=== PATIENT | male | born 1950 | race African-American/Black ===

== ENCOUNTER 2018-09-07 07:30 | Day surgery (SDC) | payer MEDICARE, BC, OTHER ==
[~2018-09-07 07:30] MED LIST: BUPIVACAINE HCL 0.75% INJ/PF (7.5 MG/1 ML) 10 ML SDV OD PRN; CHONDR SU A NA/HYALUR INTRAOC KIT (SURGICARE) ONE; EPINEPHRINE INJ/PF 1 MG/1 ML AMPULE ONE; KETOROLAC TROMETHAMINE 0.45% 4 DROP/0.4 ML DROPERETTE OD PRN; LIDOCAINE 1% INJ-PF (10 MG/ML) 30 ML SDV ONE; LIDOCAINE 4% INJ/PF (40 MG/ML) 5 ML AMPUL OD PRN; MIDAZOLAM 2 MG/2 ML INJ ONE
[2018-09-07] MEDS: TETRACAINE HCL 0.5% OPH SOLN 0.6 ML DROPERETTE OD PRN ×2 (08:08→08:37)
[2018-09-07] MEDS: CYCLOPENTOLATE 0.2%/PHENYLEPHRINE 1% OPH SOLN 2 ML OD PRN ×3 (08:09→08:33)
[2018-09-07] MEDS: BESIFLOXACIN HCL 0.6% OPH SUSP 5 ML BOTTLE OD PRN ×4 (08:09→09:18)
[2018-09-07] MEDS: TROPICAMIDE 1% OPH SOLN 3 ML OD PRN ×3 (08:09→08:33)
[2018-09-07] MEDS: DORZOLAMIDE HCL 2%/TIMOLOL MALEAT 0.5% OPH SOLN 10 ML OD PRN ×2 (09:18)
--- NOTE | 2018-09-07 10:11 | [facility] DISCHARGE SUMMARY E ---
[facility] Discharge Summary NAME: Minnie DE LA TORRE AGE: 68Y ADMITTED: 09/07/2018 DISCHARGED: HOSPITAL COURSE: The patient is a 68-year-old gentleman who underwent uneventful cataract extraction with intraocular lens implant right eye on 09/07/2018. He will be discharged to home. He was instructed to resume preoperative medications. Take Tylenol as needed for discomfort. Keep his eye shielded. Use Durezol, Prolensa and Besivance at 3:00 p.m. and 8:00 p.m. To follow up in my office in 1 day. DICTATING PHYSICIAN: LORNA MACK M.D. [id number] PHY#: [id number] ID: [id number] JOB#: [id number] ACCT: [id number] cc:LORNA MACK M.D. >
--- NOTE | 2018-09-07 10:11 | [facility] OPERATIVE REPORT E ---
[facility] Operative Report NAME: Minnie DE LA TORRE AGE: 68Y DATE OF SURGERY: 09/07/2018 ROOM: [facility] Operative Report PREOPERATIVE DIAGNOSIS: CATARACT, RIGHT EYE. POSTOPERATIVE DIAGNOSIS: CATARACT, RIGHT EYE. PROCEDURE PERFORMED: PHACOEMULSIFICATION WITH POSTERIOR CHAMBER INTRAOCULAR LENS, RIGHT EYE. SURGEON: LORNA MACK MD ANESTHESIA: TOPICAL WITH MAC. INDICATIONS FOR SURGERY: Status post vitrectomy and rapid progression of cataract. PROCEDURE: The patient was brought to the Operating Room and placed on the operative table. Following tetracaine drops, topical anesthesia was administered. This consisted of instrument wipe pledgets soaked in a solution of 4% Xylocaine mixed with 0.75% Marcaine in a 1:2 ratio. A 2 x 1 cm pledget was placed in the superior fornix. A 1 x 1 cm pledget was placed in the inferior fornix. The eye was patched shut for 5 minutes. The patch was removed. The eye was sterilely prepped and draped in the usual manner. Lid speculum was placed in the eye. The pledgets were removed. 4-0 black silk sutures were placed around the superior and the inferior rectus muscles to be used as traction. A conjunctival peritomy was made at the 10 o'clock position. Hemostasis was obtained with bipolar cautery. A posterior limbal groove was created using a crescent knife and dissected anteriorly towards the cornea. A sharp point blade was used to create a paracentesis site at the 2 o'clock position. A 2.4 mm keratome was used to enter the anterior chamber through the groove. Viscoelastic was injected into the anterior chamber. An anterior capsulotomy was performed using Utrata forceps in a capsulorrhexis fashion. Hydrodissection and hydrodelineation were performed. Phacoemulsification was performed in garmqp-gna-[id number] technique. A total of 9.69 seconds phaco time was used. Following this, the I/A unit was used to remove residual cortex. Viscoelastic was injected into the capsular bag. Intraocular lens model SN60WF, 18.5 diopters, serial number [id number] was placed in the capsular bag. The I/A unit was used to remove residual viscoelastic. The wound was seen to be watertight under high and low pressure, and no sutures were placed. The intraocular lens was well centered. The pressure was adjusted in the eye to normal pressure. The 4-0 black silk sutures and lid speculum were removed. The eye was shielded after Besivance drops were placed. A drop of Cosopt was placed in the eye at the end of surgery. The patient tolerated the procedure well and was sent to the Recovery Room in good condition. DICTATING PHYSICIAN: LORNA MACK M.D. DICTATING PHYSICIAN: LORNA MACK M.D. [id number] Y#: [id number] ID: [id number] JOB#: [id number] ACCT: [id number] cc:LORNA MACK M.D. >
== END 2018-09-07 10:02 | disposition home or self-care (01) ==
LOC: SC 07:30
PROVIDERS: ATTEND Ophthalmology
DX: H25.813 Combined forms of age-related cataract, bilateral (principal); H33.312 Horseshoe tear of retina without detachment, left eye; H35.341 Macular cyst, hole, or pseudohole, right eye; H40.1131 Primary open-angle glaucoma, bilateral, mild stage; H02.132 Senile ectropion of right lower eyelid; H02.135 Senile ectropion of left lower eyelid; I10 Essential (primary) hypertension; M19.90 Unspecified osteoarthritis, unspecified site; D64.9 Anemia, unspecified; Z79.899 Other long term (current) drug therapy; Z87.891 Personal history of nicotine dependence
CPT/HCPCS: 66984; V2632; J2250; J3490 ×5; J0171; 142

== ENCOUNTER 2019-10-25 09:33 | Day surgery (SDC) | payer MEDICARE, OTHER ==
[~2019-10-25 09:33] MED LIST changes: -BUPIVACAINE HCL 0.75% INJ/PF (7.5 MG/1 ML) 10 ML SDV OD PRN; +BUPIVACAINE HCL 0.75% INJ/PF (7.5 MG/1 ML) 10 ML SDV OS PRN; -CHONDR SU A NA/HYALUR INTRAOC KIT (SURGICARE) ONE; -EPINEPHRINE INJ/PF 1 MG/1 ML AMPULE ONE; -KETOROLAC TROMETHAMINE 0.45% 4 DROP/0.4 ML DROPERETTE OD PRN; +KETOROLAC TROMETHAMINE 0.45% 4 DROP/0.4 ML DROPERETTE OS PRN; -LIDOCAINE 4% INJ/PF (40 MG/ML) 5 ML AMPUL OD PRN; +LIDOCAINE 4% INJ/PF (40 MG/ML) 5 ML AMPUL OS PRN; -MIDAZOLAM 2 MG/2 ML INJ ONE
[2019-10-25] MEDS ORDERED: FENTANYL CITRATE INJ/PF 100 MCG/2 ML AMPUL ONE (10:25)
[2019-10-25] MEDS ORDERED: MIDAZOLAM 2 MG/2 ML INJ ONE (10:25)
[2019-10-25] MEDS ORDERED: ONDANSETRON HCL INJ/PF 4 MG/2 ML SDV ONE (10:25)
[2019-10-25] MEDS: BESIFLOXACIN HCL 0.6% OPH SUSP 5 ML BOTTLE OS PRN ×4 (11:00→12:18)
[2019-10-25] MEDS: CYCLOPENTOLATE 0.2%/PHENYLEPHRINE 1% OPH SOLN 2 ML OS PRN ×3 (11:00→11:25)
[2019-10-25] MEDS: TETRACAINE HCL 0.5% OPH SOLN 4 ML OS PRN ×3 (11:00→11:39)
[2019-10-25] MEDS: TROPICAMIDE 1% OPH SOLN 15 ML OS PRN ×3 (11:00→11:25)
[2019-10-25] MEDS: CHONDR SU A NA/HYALUR INTRAOC KIT (SURGICARE) ONE ×2 (11:54)
[2019-10-25] MEDS: EPINEPHRINE INJ/PF 1 MG/1 ML AMPULE ONE ×2 (11:54)
[2019-10-25] MEDS: LIDOCAINE 1%/PHENYLEPHRINE 1.5% 1 ML VIAL ONE ×2 (11:54)
[2019-10-25] MEDS: DORZOLAMIDE HCL 2%/TIMOLOL MALEAT 0.5% OPH SOLN 10 ML OS PRN ×2 (12:18)
[2019-10-25] MEDS ORDERED: HYALURONATE SODIUM SYRINGE 0.55 ML ONE (12:28)
--- NOTE | 2019-10-25 13:46 | Operative Report ---
Operative Report-[facility] Operative Report: DATE OF SURGERY: 10/25/2019 PREOPERATIVE DIAGNOSIS: 1. CATARACT, LEFT EYE. 2. PRIMARY OPEN ANGLE GLAUCOMA, LEFT EYE POSTOPERATIVE DIAGNOSIS: 1. CATARACT, LEFT EYE. 2. PRIMARY OPEN ANGLE GLAUCOMA, LEFT EYE PROCEDURE PERFORMED: PHACOEMULSIFICATION WITH POSTERIOR CHAMBER INTRAOCULAR LENS WITH attempted INSERTION OF ISTENT INJECTION, LEFT EYE, Istent was not used Intraocular Lens Model: SN 60 WF 18.0 Total Phaco Time: 4.23 CDE SURGEON: LORNA MACK MD ANESTHESIA: Topical plus intraocular phenylephrine/lidocaine with MAC INDICATIONS FOR SURGERY: Difficulty reading and difficulty watching TV PROCEDURE: The patient was brought to the operating room and placed on operative table. Following Tetracaine drops, topical anesthesia was administered. This consisted of instrument wipes pledgets soaked in a solution of 4% Xylocaine mixed with a 0.75% Marcaine in a 1:2 ratio. A 2 x 1 cm pledget was placed in the superior fornix. A 11 cm pledget was placed in the inferior fornix. The eye was patched shut for 5 minutes. The patch was removed. The eye was sterilely prepped and draped in the usual manner. Lid speculum was placed in the eye. The pledgets were removed and a 4-0 black silk suture was placed around the superior and inferior rectus muscle to use as traction. Conjunctival peritomy was made at the 10 o'clock position. Hemostasis was obtained with bipolar cautery. A posterior limbal groove was created using a crescent knife and dissection anteriorly towards the cornea. A sharp point blade was used to create a paracentesis site at the 2 o'clock position. A 2.4 mm keratome was used to enter the anterior chamber through the group. Viscoelastic was injected into the anterior chamber. Anterior capsulotomy was performed using Utrata forceps in a capsulorrhexis fashion. Hydrodissection and hydrodelineation was performed. Phacoemulsification was performed in a divide and conquer technique. Following this, the I/A unit was used to remove residual cortex. Viscoelastic was injected into the capsular bag. Intraocular lens were placed in the capsular bag. Following insertion of the lens implant, additional Provisc was placed in the eye. The eye was rotated inferiorly and the gonioprism was placed on the eye. The trabecular meshwork was easily visualized. The ISTENT inject was opened . However after 2 attempts the istent would not remain positioned in the meshwork and was removed using micrograspers. No istent was placed. The I/A unit was used to remove residual viscoelastic. The wound was seen to be watertight under high and low pressure, and no sutures were placed. The intraocular lens was well centered. The pressure was adjusted in the eye to normal pressure. The 4-0 black silk sutures and lid speculum were removed. The eye was shielded after Besivance and Cosopt drops were placed. The patient tolerated the procedure well and was sent to the recovery room in good condition.
== END 2019-10-25 13:02 | disposition home or self-care (01) ==
LOC: SC 09:33
PROVIDERS: ATTEND Ophthalmology
DX: H25.812 Combined forms of age-related cataract, left eye (principal); H40.1131 Primary open-angle glaucoma, bilateral, mild stage; H35.341 Macular cyst, hole, or pseudohole, right eye; Z96.1 Presence of intraocular lens; H02.132 Senile ectropion of right lower eyelid; H02.135 Senile ectropion of left lower eyelid; I10 Essential (primary) hypertension; D64.9 Anemia, unspecified; Z79.899 Other long term (current) drug therapy; Z87.891 Personal history of nicotine dependence
CPT/HCPCS: 0191T; 66984; 142; J0171; J2250; J2370; J2405; J3010; J3490; V2632